=== PATIENT | female | born 1950 | race Caucasian/White ===

== ENCOUNTER → 2017-09-05 | Outpatient (CLI) | payer MEDICARE, BC, OTHER ==
--- NOTE | 2017-09-05 15:38 | WOMENS IMAGING REPORT ---
EXAM DESCRIPTION: BILAT DIAGNOSTIC MAMMO W/CAD; U/S BREAST UNILAT LIMITED COMPLETED DATE/TIME: 09/05/2017 9:27 am; 09/05/2017 11:26 am REASON FOR STUDY: SOLITARY CYST OF RIGHT BREAST; RT BREAST LUMP N 60.01 N60.01 SOLITARY CYST OF RIG HT BREAST S20.01XS CONTUSION OF RIGHT BREAST, SEQUELA COMPARISON: Mammograms 01/26/2014, 07/21/2011, 02/22/2010 TECHNIQUE: Standard craniocaudal and mediolateral oblique views of each breast recorded using digita l acquisition. Additional right breast 90 mediolateral view and cone compression right breast in the CC and MLO jaylyn entations Right breast and axilla ultrasound was also performed LIMITATIONS: None. FINDINGS: RIGHT BREAST MASSES: In the upper outer quadrant, about the 9 to 10 o'clock position, a 3 x 2 cm well-circumscribe d mammographic mass is present which correlates with the area of palpable abnormality indicated by th e patient. In the lower inner quadrant medially about 5 to 6 cm from the nipple, an irregularly-shaped nodule wi th spiculated margins and associated microcalcifications is present measuring about 1.5 cm in diamete r. At the upper edge of the field of view on MLO view, a large axillary lymph node is present. This is incompletely included in the field of view. A smaller 11 mm axillary lymph node is present with loss central hilar fat worrisome for tumor involvement. CALCIFICATIONS: Punctate calcifications are present in the right breast nodule lower inner quadrant. ARCHITECTURAL DISTORTION: Architectural distortion is associated with the right breast nodule lower i nner quadrant DEVELOPING DENSITY: None. ASYMMETRY: None noted. OTHER: No other significant findings. LEFT BREAST MASSES: No suspicious masses. CALCIFICATIONS: No new or suspicious calcifications. ARCHITECTURAL DISTORTION: None. DEVELOPING DENSITY: None. ASYMMETRY: None noted. OTHER: No other significant finding. Read with the assistance of CAD: .[facility] - R2 Cenova Version 1.3 .[facility] - R2 Cenova Version 1.3 .[facility] - R2 Cenova Version 2.4 .[facility] [place]2 Cenova Version 2.4 .[facility] - R2 Outside Salesman Version 9.2 Right breast and axilla ultrasound: In the area of right breast palpable abnormality 9 to 10 o'clock position, a 3 x 2 cm solid mass is p resent with internal color flow and low-level internal echoes. Partial border loss. This is worriso me for malignancy. In the lower inner quadrant right breast 3 to 4 o'clock position, a hypoechoic solid mass with associ ated calcifications is present, taller than wide, with acoustic absorption. This measures 1.8 x 1.6 cm in size, and is worrisome for malignancy. A 4 x 2 cm hypoechoic right axillary lymph node is present worrisome for malignant involvement. A sm aller 10 mm lymph node is present in the right axilla, indeterminate for malignant involvement. IMPRESSION: Right breast mammographic and sonographic findings worrisome for malignancy No mammographic evidence for malignancy left breast BREAST DENSITY: c. The breasts are heterogeneously dense, which may obscure small masses. BIRAD: 5 Highly suggestive of malignancy. Appropriate action should be taken. RECOMMENDATION: RECOMMENDED FOLLOW UP: Ultrasound-guided core biopsy of the right breast lower inner quadrant mass, lateral 9 to 10 o'clock right breast mass, and enlarged right axillary lymph node. I mmediate post biopsy two-view mammogram for followup SPECIFIC INTERVENTION/IMAGING/CONSULTATION RECOMMENDED:Right breast ultrasound-guided biopsy, right a xillary lymph node ultrasound-guided biopsy COMMUNICATION:These results were discussed with the patient. Views results were also discussed with Dr. Yousif, 1026 hours, 08/06/2017. The patient understands the need for biopsy. COMMENT: The patient has been notified of the results by letter per SA requirements. Additional no tification policies are in place for contacting patient with suspicious or incomplete findings. Quality ID #[id number]: The [employer] recommends an annual screening mammogram for women aged 40 years or over. This facility utilizes a reminder system to ensure that all patients receive reminder letters, and/or direct phone calls for appointments. This includes reminders for routine scr eening mammograms, diagnostic mammograms, or other Breast Imaging Interventions when appropriate. Th is patient will be placed in the appropriate reminder system. The [employer] (ACR) has developed recommendations for screening MRI of the breast s in certain patient populations, to be used in conjunction with mammography. Breast MRI surveillanc e may be appropriate for women with more than 20% lifetime risk of developing breast cancer as deter mined by genetic testing, significant family history of the disease, or history of mantle radiation f or Hodgkins Disease. ACR Practice Guidelines 2008. TECHNICAL DOCUMENTATION: FINDING NUMBER: (1) ASSESSMENT: (1) JOB ID: [id number] [employer]- All Rights Reserved
--- NOTE | 2017-09-05 15:38 | WOMENS IMAGING REPORT ---
EXAM DESCRIPTION: BILAT DIAGNOSTIC MAMMO W/CAD; U/S BREAST UNILAT LIMITED COMPLETED DATE/TIME: 09/05/2017 9:27 am; 09/05/2017 11:26 am REASON FOR STUDY: SOLITARY CYST OF RIGHT BREAST; RT BREAST LUMP N 60.01 N60.01 SOLITARY CYST OF RIG HT BREAST S20.01XS CONTUSION OF RIGHT BREAST, SEQUELA COMPARISON: Mammograms 01/26/2014, 07/21/2011, 02/22/2010 TECHNIQUE: Standard craniocaudal and mediolateral oblique views of each breast recorded using digita l acquisition. Additional right breast 90 mediolateral view and cone compression right breast in the CC and MLO jaylyn entations Right breast and axilla ultrasound was also performed LIMITATIONS: None. FINDINGS: RIGHT BREAST MASSES: In the upper outer quadrant, about the 9 to 10 o'clock position, a 3 x 2 cm well-circumscribe d mammographic mass is present which correlates with the area of palpable abnormality indicated by th e patient. In the lower inner quadrant medially about 5 to 6 cm from the nipple, an irregularly-shaped nodule wi th spiculated margins and associated microcalcifications is present measuring about 1.5 cm in diamete r. At the upper edge of the field of view on MLO view, a large axillary lymph node is present. This is incompletely included in the field of view. A smaller 11 mm axillary lymph node is present with loss central hilar fat worrisome for tumor involvement. CALCIFICATIONS: Punctate calcifications are present in the right breast nodule lower inner quadrant. ARCHITECTURAL DISTORTION: Architectural distortion is associated with the right breast nodule lower i nner quadrant DEVELOPING DENSITY: None. ASYMMETRY: None noted. OTHER: No other significant findings. LEFT BREAST MASSES: No suspicious masses. CALCIFICATIONS: No new or suspicious calcifications. ARCHITECTURAL DISTORTION: None. DEVELOPING DENSITY: None. ASYMMETRY: None noted. OTHER: No other significant finding. Read with the assistance of CAD: .[facility] - R2 Cenova Version 1.3 .[facility] Imaging - R2 Cenova Version 1.3 .[facility] - R2 Cenova Version 2.4 .[facility] [place] - R2 Cenova Version 2.4 .[facility] - R2 Insulation Worker Apprentice Version 9.2 Right breast and axilla ultrasound: In the area of right breast palpable abnormality 9 to 10 o'clock position, a 3 x 2 cm solid mass is p resent with internal color flow and low-level internal echoes. Partial border loss. This is worriso me for malignancy. In the lower inner quadrant right breast 3 to 4 o'clock position, a hypoechoic solid mass with associ ated calcifications is present, taller than wide, with acoustic absorption. This measures 1.8 x 1.6 cm in size, and is worrisome for malignancy. A 4 x 2 cm hypoechoic right axillary lymph node is present worrisome for malignant involvement. A sm aller 10 mm lymph node is present in the right axilla, indeterminate for malignant involvement. IMPRESSION: Right breast mammographic and sonographic findings worrisome for malignancy No mammographic evidence for malignancy left breast BREAST DENSITY: c. The breasts are heterogeneously dense, which may obscure small masses. BIRAD: 5 Highly suggestive of malignancy. Appropriate action should be taken. RECOMMENDATION: RECOMMENDED FOLLOW UP: Ultrasound-guided core biopsy of the right breast lower inner quadrant mass, lateral 9 to 10 o'clock right breast mass, and enlarged right axillary lymph node. I mmediate post biopsy two-view mammogram for followup SPECIFIC INTERVENTION/IMAGING/CONSULTATION RECOMMENDED:Right breast ultrasound-guided biopsy, right a xillary lymph node ultrasound-guided biopsy COMMUNICATION:These results were discussed with the patient. Views results were also discussed with Dr. Yousif, 1026 hours, 08/06/2017. The patient understands the need for biopsy. COMMENT: The patient has been notified of the results by letter per SA requirements. Additional no tification policies are in place for contacting patient with suspicious or incomplete findings. Quality ID #[id number]: The [employer] recommends an annual screening mammogram for women aged 40 years or over. This facility utilizes a reminder system to ensure that all patients receive reminder letters, and/or direct phone calls for appointments. This includes reminders for routine scr eening mammograms, diagnostic mammograms, or other Breast Imaging Interventions when appropriate. Th is patient will be placed in the appropriate reminder system. The [employer] (ACR) has developed recommendations for screening MRI of the breast s in certain patient populations, to be used in conjunction with mammography. Breast MRI surveillanc e may be appropriate for women with more than 20% lifetime risk of developing breast cancer as deter mined by genetic testing, significant family history of the disease, or history of mantle radiation f or Hodgkins Disease. ACR Practice Guidelines 2008. TECHNICAL DOCUMENTATION: FINDING NUMBER: (1) ASSESSMENT: (1) JOB ID: [id number] [employer]- All Rights Reserved
== END ==
LOC: WI 08:59
PROVIDERS: ATTEND Family Medicine
DX: S20.01XS Contusion of right breast, sequela (principal); X58.XXXS Exposure to other specified factors, sequela; N60.01 Solitary cyst of right breast
CPT/HCPCS: 76642; G0204; 77066

== ENCOUNTER → 2017-09-19 | Day surgery (SDC) | payer MEDICARE, BC, OTHER ==
[~2017-09-19] MED LIST: LIDOCAINE 1% INJ-PF (10 MG/ML) 30 ML SDV ONE
--- NOTE | 2017-09-21 15:25 | WOMENS IMAGING REPORT ---
EXAM DESCRIPTION: U/S BREAST BX; RIGHT DIG DX MAMMO NO CHG COMPLETED DATE/TIME: 09/19/2017 2:36 pm; 09/19/2017 3:16 pm REASON FOR STUDY: SOLITARY CYST OF RIGHT BREAST, UNSPECIFIED; S/P US BX RIGHT BREAST N63.14, N63.10, N63.13 N60.01 SOLITARY CYST OF RIGHT BREAST N63.0 UNSPECIFIED LUMP IN UNSPECIFIED BREAST N63.14 UNSPECIFIED LUMP IN THE RIGHT BREAST, LOWER INNER CALLIE COMPARISON: 09/05/2017. TECHNIQUE: The procedure was discussed with the patient and the patient agreed to proceed. The patient was scanned and the area of interest in the 3-4 o'clock position of the right breast was localized. This correlates with the area of concern on prior imaging studies. This area was targeted for ultrasound-guided core biopsy. After sterile skin prep and 10 mL local lidocaine 1% for skin and deep tissue anesthesia, a 14 gauge coaxial core biopsy needle was used to obtain several cores of tissue from the lesion. Under ultraso und guidance, a ribbon clip was placed in the areas sampled. There were no immediate post-procedure complications. MAMMOGRAM: Post-procedure two view mammogram was acquired in the digital mammogram suite. The clip wa s in the expected location. No significant hematoma. Pathology yields a diagnosis of invasive ductal carcinoma with ductal carcinoma in situ. Pathology is concordant. LIMITATIONS: None. FINDINGS: Ultrasound guided breast biopsy as described above. POST PROCEDURE MAMMOGRAMS FOR MARKER PLACEMENT: Yes IMPRESSION: ULTRASOUND-GUIDED CORE BIOPSY OF THE RIGHT BREAST YIELDS A DIAGNOSIS OF INVASIVE DUCTAL CARCINOMA. COMMENT: Originally, 3 biopsies were planned for the same visit. The 1st biopsy of the smaller mass in the medial breast, the 2nd biopsy of the larger mass in the lateral breast, and a 3rd biopsy of t he abnormal axillary lymph node. However, at the completion of the 1st biopsy the patient stated sylvia t she did not want to proceed with any further biopsies and, after confirming that these were the pat ient's wishes, the 2nd and 3rd biopsies were not performed. COMMUNICATION: Attempts to contact the patient to provide the pathology results were unsuccessful. T he patient's provider has been notified of the findings. The provider will discuss the findings with the patient. Patient medication list reviewed: Yes- Quality ID# [id number]:Eligible professional attests to documenting i n the medical record they obtained, updated, or reviewed the patient's current medications. TECHNICAL DOCUMENTATION: JOB ID: [id number] [employer]- All Rights Reserved
== END ==
LOC: RAD 12:56
PROVIDERS: ATTEND Family Medicine
PROC: 0HBT3ZX Excision of Right Breast, Percutaneous Approach, Diagnostic (ICD-10-PCS; principal; 2017-09-19)
DX: C50.311 Malignant neoplasm of lower-inner quadrant of right female breast (principal)
CPT/HCPCS: 88342 ×2; 88305 ×2; 19083; J3490